=== PATIENT | female | born 1965 | race Caucasian/White ===

== ENCOUNTER → 2016-07-27 | Outpatient (CLI) | payer OTHER ==
[~2016-07-27] MED LIST: EFFSR150 PO; LATA0.009 OPB; LISI-725 PO; REPA2TAB12 PO
--- NOTE | 2016-07-27 16:16 | MAMMOGRAPHY REPORT ---
BILATERAL DIGITAL SCREENING MAMMOGRAM WITH CAD: 07/27/2016 CLINICAL HISTORY: Routine screening. TECHNIQUE: Bilateral CC, MLO and repeat left MLO views were obtained. Current study was also evaluat ed with a Computer Aided Detection (CAD) system. COMPARISON: Comparison is made to exams dated: 07/24/2015 mammogram, 07/19/2014 mammogram, 07/18/2013 ma mmogram, 07/13/2012 mammogram, 07/21/2011 mammogram, and 07/13/2011 mammogram - [facility]. BREAST COMPOSITION: There are scattered areas of fibroglandular density in both breasts. FINDINGS: No suspicious mass, architectural distortion or cluster of microcalcifications is seen. IMPRESSION: ACR BI-RADS CATEGORY 1: NEGATIVE There is no mammographic evidence of malignancy. A 1 year screening mammogram is recommended. The pa tient will receive written notification of the results. Approximately 10% of breast cancers are not detected with mammography. A negative mammographic report should not delay biopsy if a clinically suggestive mass is present. Jen Wynne M.D. ay/:07/27/2016 14:20:47 [employer]aving [employer]man: Fredy MCDANIEL(R)(M), [facility] letter sent: Normal 1/2 BI-RADS Code: ACR BI-RADS Category 1: Negative
== END | disposition home or self-care (01) ==
LOC: C.MAMM 08:37
PROVIDERS: ATTEND Obstetrics & Gynecology
DX: Z12.31 Encounter for screening mammogram for malignant neoplasm of breast (principal)

== ENCOUNTER → 2017-01-12 | Outpatient (CLI) | payer OTHER ==
--- NOTE | 2017-01-12 09:59 | DIAGNOSTIC IMAGING REPORT ---
SACRUM COCCYX MIN 2 VIEWS CLINICAL HISTORY: Left back and hip pain COMPARISON STUDY: No previous studies for comparison. FINDINGS: There is no SI joint diastases. There is no symphysis diastases. No fractures are visualized. No destructive lesions are evident on conventional radiographic evaluation. IMPRESSION: No fractures or destructive lesions are visualized. Electronically signed by: Norman Marino M.D. 01/12/2017 9:58 AM Dictated Date/Time: 01/12/2017 9:57 AM
--- NOTE | 2017-01-12 10:04 | DIAGNOSTIC IMAGING REPORT ---
L-SPINE MIN 4 VIEWS ROUTINE HISTORY: Pain STRAIN OF LEFT HIP, RADICULAR LEG PAIN COMPARISON: None. FINDINGS: There is no fracture. No subluxation. Mild degenerative disc changes throughout. No evidence of subluxation. No evidence for compression deformity. IMPRESSION: Mild degenerative disc change. No acute process. The above report was generated using voice recognition software. It may contain grammatical, syntax or spelling errors. Electronically signed by: Dimitrios Knox M.D. 01/12/2017 10:03 AM Dictated Date/Time: 01/12/2017 10:02 AM
== END | disposition home or self-care (01) ==
LOC: C.RADBC 09:14
PROVIDERS: ATTEND Nurse Practitioner
DX: S76.012A Strain of muscle, fascia and tendon of left hip, initial encounter (principal); S39.012S Strain of muscle, fascia and tendon of lower back, sequela; M51.16 Intervertebral disc disorders with radiculopathy, lumbar region; X58.XXXA Exposure to other specified factors, initial encounter; X58.XXXS Exposure to other specified factors, sequela

== ENCOUNTER → 2017-01-19 | Outpatient (CLI) | payer OTHER ==
--- NOTE | 2017-01-19 12:02 | DIAGNOSTIC IMAGING REPORT ---
CERVICAL SPINE 6 VIEWS HISTORY: CERVICALGIA, MYALGIA COMPARISON: Cervical spine 01/17/2007. FINDINGS: The cervical spine is visualized from C1 through the superior endplate of T1. There is no fracture. No subluxation. Disc spaces are preserved. Prevertebral soft tissues and the atlantodens interval are intact. The neural foramina are widely patent. Straightening of the cervical spine. IMPRESSION: No change in the straightening of the cervical spine. No significant degenerative disc disease. Electronically signed by: Ab Regalado M.D. 01/19/2017 12:00 PM Dictated Date/Time: 01/19/2017 11:59 AM
== END | disposition home or self-care (01) ==
LOC: C.RADBC 11:11
PROVIDERS: ATTEND Nurse Practitioner
DX: M54.2 Cervicalgia (principal); M79.1 Myalgia